=== PATIENT | female | born 1955 | race Caucasian/White ===

== ENCOUNTER 2016-08-22 12:32 | Emergency (ER) | payer OTHER ==
[~2016-08-22] VITALS: Ht 165.1 cm; Wt 81.7 kg
[~2016-08-22 12:32] MED LIST: ALEVE220 MG PO; ALPRAZOLAM 0.0.25 MG PO; AMITRIPTYLINE H10 M3 PO; ASPIRIN81 M2 PO; ATENOLOL 50MG T50 M1 PO; AUGMENTIN 875875 MG PO; FLEXERIL PO; HYDROCODON-ACE1 EAC7 PO; IBUPROFEN 400400 M2 PO; LYRICA 75 MG CA75 MG PO; MELOXICAM7.5 MG; MOBIC15 MG PO; NORCO 5-325 TA1 EACH PO; ONDANSETRON HCL4 M2 PO; PREDNISONE 5 MG5 M1 PO; PREDNISONE50 MG PO; PRILOSEC40 MG PO; SUMATRIPTAN SUC50 MG PO; TOPAMAX 25 MG T25 M1 PO; TRAMADOL 50 MG50 MG PO; TRAZODONE 150150 M1 PO; TRAZODONE HCL50 MG PO; VALTREX1000 MG; VIVELLE-DOT1 EAC1 TD; VIVELLE-DOT1 EAC1 TOP; VIVELLE-DOT1 EAC1 TRANSDERM; VIVELLE1 EAC1 TRANSDERM; XANAX 0.25 MG0.25 MG PO; ZANAFLEX4 MG PO
[2016-08-22 13:21] LABS: ABSOLUTE NEUTROPHILS 4.3 thou/uL (1.4-8.2); BASOPHILS 0.6 % (0.0-2.0); EOSINOPHILS 2.1 % (0.0-3.0); HEMATOCRIT 42.6 % (37.0-47.0); HEMOGLOBIN 14.6 gm/dL (12.0-15.0); LYMPHOCYTES 39.6 % (24.0-44.0); MCH 31.4 pg (26.0-34.0); MCHC 34.2 g/dL (28.0-37.0); MCV 91.8 fL (80.0-100.0); PLATELET COUNT 202 thou/uL (150-400); POLYS 52.7 % (36.0-66.0); RBC 4.65 mil/uL (4.20-5.00); RDW 12.6 % (10.5-14.5); WBC 8.1 thou/uL (4.0-11.0)
[2016-08-22 13:27] LABS: MANUAL DIFF NO
[2016-08-22 13:31] LABS: CALCIUM 9.1 mg/dL (8.5-10.1); POTASSIUM 4.3 mmol/L (3.5-5.1)
[2016-08-22] MEDS ORDERED: PREDNISONE 10 M10 MG PO (14:21)
[2016-08-22] MEDS ORDERED: NORFLEX100 MG PO (14:21)
[2016-08-22] MEDS ORDERED: HYDROCODONE-AP1 EAC6 PO (14:21)
[2016-08-22 14:34] LABS: ALBUMIN 3.9 g/dL (3.4-5.0); ALKALINE PHOSPHATASE 118 U/L (46-116); DIRECT BILIRUBIN < 0.1 mg/dL (<0.1-0.3); SGOT 36 U/L (15-37); SGPT 80 U/L (30-65); TOTAL BILIRUBIN 0.3 mg/dL (<0.1-1.0); TOTAL PROTEIN 7.5 g/dL (6.4-8.2)
== END 2016-08-22 14:51 | disposition home or self-care (01) ==
LOC: ER 12:32
PROVIDERS: Physician Assistant
DX: M54.12 Radiculopathy, cervical region (principal); R79.89 Other specified abnormal findings of blood chemistry; Z90.89 Acquired absence of other organs; Z90.710 Acquired absence of both cervix and uterus; Z88.1 Allergy status to other antibiotic agents; Z88.5 Allergy status to narcotic agent; Z88.8 Allergy status to other drugs, medicaments and biological substances; Z87.891 Personal history of nicotine dependence

== ENCOUNTER → 2016-11-18 | Outpatient (CLI) | payer OTHER ==
[~2016-11-18] MED LIST changes: +HYDROCODONE-AP1 EAC6 PO; +NORFLEX100 MG PO; +PREDNISONE 10 M10 MG PO
== END ==
LOC: CAT 15:00
DX: Z13.6 Encounter for screening for cardiovascular disorders (principal)

== ENCOUNTER → 2018-04-13 | Outpatient (CLI) | payer OTHER ==
[~2018-04-13] VITALS: Ht 165.1 cm; Wt 71.9 kg
[~2018-04-13] MED LIST changes: +ACYCLOVIR 400400 MG PO; +CYMBALTA60 MG PO; +NEURONTIN 300300 M1 PO; +OMEPRAZOLE 20 M20 M1 PO; +PRAVACHOL40 MG PO; +VERAPAMIL ER180 MG PO; +XANAX 0.5 MG0.5 MG PO
--- NOTE | ~2018-04-13 | HPC ---
[facility] [place] [address] PAIN MANAGEMENT CONSULTATION Name: RACIEL THOMSON Room #: REG ADIA MKailynR.#: [id number] Admission: 04/13/18 Attend Phys: Aniceto Hinds MD Discharge: Date of : 57 Report #: [id number] THIS REPORT FOR: //name// CC: RUSS Hinds DATE OF SERVICE: 04/13/2018 CHIEF COMPLAINT: Pain in the area of the right scapula with localized tenderness. This pain then radiates into the right arm and follows radial nerve distribution into the hand, also following C6. I am one of many physicians to see the patient who presents as a bit of an enigma. By description, you would describe her pain as almost classically radicular following the C6 distribution in the right arm. It begins in her neck, radiates through her scapula and down her arm posterior and into the thumb and index finger. This is associated also with some weakness and numbness and tingling. She has seen Dr. Rubina Corley, who felt that this was radicular and gave her 2 epidural injections, neither of which provided relief. She saw a physician at [facility] who performed an ulnar transposition. Pain tends to radiate for her in the distribution of the thumb and index finger, which would be more radial. This ulnar transposition surgery did not provide relief nor would it be expected to affect the thumb and index finger in my opinion. She saw Dr. Jerry Sanchez, who provided some trigger point injections. Temporary relief is noted, but the pain returned fairly quickly. She has been using Lidoderm patches with some slight benefit. She has had chiropractic treatments, which also provide limited improvement and duration is short. MEDICATIONS: Acyclovir, verapamil, omeprazole, Cymbalta 60 mg b.i.d., gabapentin 300 mg q.i.d. and at bedtime, trazodone 50 mg at bedtime, tizanidine 4 mg as needed, hydrocodone 5/325 p.r.n., pravastatin 1 mg b.i.d. ALLERGIES: CEPHALEXIN, CODEINE. PAST MEDICAL HISTORY: Significant for colitis and some stomach problems. She has had carpal tunnel surgery, right and left and the ulnar nerve relocation in 08/2015. 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 She smokes a pack of cigarettes a day and has done so throughout her life, although she just recently restarted 3 months ago. She drinks alcohol seldom. PHYSICAL EXAMINATION: Pleasant female, bit frustrated by lack of ability to get [facility] [address] [place] [address] PAIN MANAGEMENT CONSULTATION Name: RACIEL THOMSON Room #: REG ADIA Hernandez#: [id number] Admission: 04/13/18 Attend Phys: Aniceto Hinds MD Discharge: Date of : 57 Report #: [id number] rid of this chronic pain. Blood pressure is 132/71, heart rate 96, respirations 14, O2 sat 98. Her BMI is 26.4. Examination of the neck reveals good range of motion. Examination of the upper extremities and shoulders reveals good range of motion in the shoulders, elbows, wrists and hands. Good mba intern strength is noted. No weakness in biceps or triceps function. Straight leg raising above the head and forward reveals no asymmetry or movement in the scapula. Examination of the skin over the scapula reveals no rash or swelling, no redness. Palpating exam reveals tenderness along the upper border of the scapula and also extending along the medial border and below the scapula. She raised her arms above her head. She has pain in the areas that has been overlying by the scapular border. Deep tendon reflexes in the upper extremities are 2+ biceps and triceps, brachioradialis. Sensation is intact. Sensation in the lower extremities is normal. Deep tendon reflexes are normal in the lower extremities as well. All x-rays reviewed. There is no evidence of cervical pathology to be consistent with her right-sided pain. She does have some neural foraminal narrowing on the left her contralateral side. Dr. Jerry Sanchez has performed an EMG, which shows no evidence of peripheral neuropathy or central neuropathy or radiculopathy. IMPRESSION: Chronic subscapular pain with radiation into the right arm. Over and over again throughout the exam and during our discussion, she kept referring to the pain in her scapular, the pain overlying her scapula, the pain medial to her scapula. Although she has pain that radiates in a nerve distribution into the arm, it seems to me that her scapula is her greatest complaint. There are no common syndromes certainly associated with subscapular pain; however, there are some patients who have responded to treatments, particularly injections between the scapula and the chest wall. I was going to inject her today, but thought it would be interesting to perform a diagnostic x-ray study to see if there was anything that we could identify in the subscapular region before we started injecting below it. I spoke with Dr. Chidi Aleman in the Department of Radiology at [facility] and he suggested a CT scan with contrast focusing on the area of concern. We will see if anything shows up. I then scheduled her back in the pain clinic for a subscapular trigger point injection. We will perform this injection after we receive the studies unless there is something else that we should review. I also considered the possibility of bone scan to see if it provided any abnormal findings in the area of pain generation. [address] [place] [address] PAIN MANAGEMENT CONSULTATION Name: RACIEL THOMSON Room #: REG Nuno Moncada.#: [id number] Admission: 04/13/18 Attend Phys: Aniceto Hinds MD Discharge: Date of : 57 Report #: [id number] Followup visit is planned in 1 week for subscapular injection. By: [id number] Aniceto Hinds MD /nt
[2018-04-13 09:06] VITALS: BP 132/71
== END ==
LOC: PAIN 08:41
DX: M25.511 Pain in right shoulder (principal); G89.29 Other chronic pain

== ENCOUNTER → 2018-04-24 | Outpatient (CLI) | payer OTHER ==
[2018-04-24 12:27] LABS: CREATININE 0.8 mg/dL (0.6-1.0)
== END ==
LOC: PAIN 10:15 → CAT 11:37
PROVIDERS: Anesthesiology Pain Medicine
DX: M19.011 Primary osteoarthritis, right shoulder (principal); I71.2 Thoracic aortic aneurysm, without rupture; M41.84 Other forms of scoliosis, thoracic region; M47.814 Spondylosis without myelopathy or radiculopathy, thoracic region

== ENCOUNTER → 2018-05-02 | Outpatient (CLI) | payer OTHER ==
[~2018-05-02] VITALS: Ht 165.1 cm; Wt 73.8 kg
--- NOTE | ~2018-05-02 | HPC ---
[facility] [place] [address] PAIN MANAGEMENT CONSULTATION Name: RACIEL THOMSON Room #: REG ADIA GoldKailynJim.#: [id number] Admission: 05/02/18 Attend Phys: Aniceto Hinds MD Discharge: Date of : 57 Report #: [id number] THIS REPORT FOR: //name// CC: Elias Hinds DATE OF SERVICE: 05/02/2018 SUBJECTIVE: The patient returns to pain clinic today for ongoing pain that has remained a bit of an enigma. She has seen multiple practitioners and received variety of injections, treatments, massage and manipulations. She continues to complain of chronic pain described in her initial visit that begins in the right neck, radiates above the scapula through her shoulder and at times down her arm. She also has pain along the medial border and lateral border of the scapula. She has multiple myofascial trigger points located in this region. I now have records from her previous treatments including Dr. Rubina Corley' epidural steroid injections performed at the level of C7-T1. Ms. Lindsey's trigger point injections using small volumes in the suprascapular region and I have reviewed the CT scan, which shows that she does have some degenerative changes about the glenoid. This could be a portion of her pain. The most notable feature, however, the discrete myofascial trigger points located throughout a variety of muscles in the neck, shoulder and along the scapula. MEDICATIONS: Reviewed and reconciled in electronic medical record. She is out of hydrocodone, which she finds helpful in reducing her pain to a tolerable level. She does not over utilize it, taking no more than one to two tablets a day. She has never been on an opioid agreement and given her multiple attempts to treat this pain with injections and other interventional failures, I have agreed to provide her with medication under terms of an opioid agreement with the intent to limit her exposures to other treatment modalities and to try and discontinue doctor shopping. I have reviewed the risks and benefits of all opioids. We talked about addiction versus the use of medication cautiously and the treatment of chronic intractable pain as outlined on our website. We talked about the opioid crisis in [facility] and the importance of safeguarding all medications. We identified goals as reduction of pain, not elimination and improvement in daily function as a result of this. Decreasing health care contacts also has been one of the goals of treating patients successfully with medication. We will start her at hydrocodone 5 mg twice a day for a total of 10 MME considered very low dose under the CDC guidelines. [address] [address] PAIN MANAGEMENT CONSULTATION Name: RACIEL THOMSON Room #: REG Nuno Hernandez#: [id number] Admission: 05/02/18 Attend Phys: Aniceto Hinds MD Discharge: Date of : 57 Report #: [id number] PHYSICAL EXAMINATION: GENERAL: Today, she is mildly depressed. She speaks with a slight slurring of her speech, which was present at her last visit. I do not believe that this is a drug related effect, but of a buccal drug screen will be performed today. MUSCULOSKELETAL: Examination of the neck reveals decreased range of motion in lateral tilt, rotation, flexion and extension. She has tenderness along the muscles of the neck including the levator scapulae, the splenius capitis and additional tenderness along the deeper muscles between between the medial border of the scapula and the spine including the rhomboid major and minor muscles as well as the serratus. The trapezius is tender as well more superficially. Along the spine and the scapula, she has tenderness of the supraspinatus as well as pain that extends below the scapula likely attachments of the rhomboid muscle group. Finally, she has tenderness more laterally along the attachments of the shoulder including the supraspinatus, infraspinatus and the teres. IMPRESSION: Chronic neck and shoulder pain. Multiple myofascial tender points involving 10 separate muscle groups identified in physical exam. PROCEDURE: Multiple trigger points performed with x-ray to confirm needle positions along the border of the scapula. She was taken to fluoroscopic suite and she was placed prone. Skin was prepped widely with ChloraPrep. It began in the neck, first injecting the splenius capitis, levator scapulae with 2 mL of 0.25% bupivacaine mixed with 1 mg per mL of triamcinolone. I then continued in a counterclockwise fashion injecting the trapezius superficially, the rhomboid major and minor muscle and the serratus. I then turned my attention superiorly injecting the supraspinatus, infraspinatus and the teres muscle. Each injection performed with 2 mL of 0.25% bupivacaine with 1 mg of triamcinolone per mL. Gentle massage was provided into the area following the injection. I did use the x-ray on several occasions just to know position of the needle in relationship to the scapula as well as to the shoulder joint itself as we moved more laterally. Degenerative changes were noted. She was given a prescription for hydrocodone 5/325, #60 tablets and a followup visit scheduled for 2 months. Release prescriptions for 1 month will be provided. She was given instructions on how to use the medications carefully and we discussed side effects and risks. <ELECTRONICALLY SIGNED> By: Aniceto Hinds MD 05/04/18 1538 [id number] Aniceto Hinds MD /parul
[2018-05-02 11:27] VITALS: BP 120/85
== END | disposition home or self-care (01) ==
LOC: PAIN 08:34
DX: M79.18 Myalgia, other site (principal); G89.29 Other chronic pain; M54.2 Cervicalgia; M25.511 Pain in right shoulder; Z98.890 Other specified postprocedural states; F17.210 Nicotine dependence, cigarettes, uncomplicated; Z88.8 Allergy status to other drugs, medicaments and biological substances; Z79.899 Other long term (current) drug therapy; Z79.891 Long term (current) use of opiate analgesic

== ENCOUNTER → 2018-06-12 | Outpatient (CLI) | payer OTHER ==
[~2018-06-12] VITALS: Ht 165.1 cm; Wt 74.4 kg
--- NOTE | ~2018-06-12 | HPC ---
[facility] [place] [address] PAIN MANAGEMENT CONSULTATION Name: RACIEL THOMSON Room #: REG Nuno M.R.#: [id number] Admission: 06/12/18 Attend Phys: Aniceto Hinds MD Discharge: Date of : 57 Report #: [id number] THIS REPORT FOR: //name// CC: Elias Lindsey, MICHELLE Hinds DATE OF SERVICE: 06/12/2018 The patient returns to Pain Clinic today and she reported that she had a very favorable response to trigger point injections performed in and around the scapula and subscapular region. I injected the trapezius, rhomboid and the serratus. I also injected the supraspinatus, infraspinatus and teres muscle. Multiple injections provided. The response was nearly immediate and sustained. She has used far less pain medication over the course of the last 2 months. I have agreed to provide her medications for her under terms of our written opioid agreement. Her last prescription for Wyarno was provided on 05/02/2018 for 60 tablets. She will fill that in May and still has some medication remaining. I reviewed her buccal drug screen. It shows cotinine, a metabolite of nicotine. We discussed smoking cessation. It also shows gabapentin. No additional medications or drugs of abuse were identified. There was a lengthy discussion today about opioids, the opioid agreement, the use of opioids in treatment for chronic pain and the recently passed medical marijuana resolution in [place]. We are not currently recommending a product as we have no medications. We did discuss the medicinal qualities of CBD and THC in varying percentages. We are quick to point out that all marijuana remains illegal on a federal basis and physicians are not allowed to prescribe it as other medications. PHYSICAL EXAMINATION: She is pleasant, alert and oriented. Her blood pressure is 110/64, heart rate 79. BMI 27. Trigger points in the back much reduced and she scores her pain today as a 2. Range of motion of the upper extremities is symmetrical. No restrictions on the right as before. No focal weakness is noted. IMPRESSION: 1. Chronic neck and shoulder pain. Myofascial pain syndrome. 2. Management of high risk medications. [facility] [address] [place] [address] PAIN MANAGEMENT CONSULTATION Name: RACIEL THOMSON Room #: REG [facility]#: [id number] Admission: 06/12/18 Attend Phys: Aniceto Hinds MD Discharge: Date of : 57 Report #: [id number] PLAN: 1. Trigger points will be repeated in the future as necessary. 2. Management of opioid medications under terms of written opioid agreement was provided for her with hydrocodone 5/325, no more than 2 tablets a day, which equates to an MME of 10. Followup visit scheduled in 2 months. She will call if she needs further injection therapy. By: [id number] Aniceto Hinds MD /nt
[2018-06-12 10:03] VITALS: BP 110/64
--- NOTE | 2018-06-12 10:13 | NUR ---
Pain Clinic Assessment: 1. History of Osteoarthritis: Not Applicable History of Rheumatoid Arthritis: Not Applicable 2. Height: 5 ft. 5 in. 165.1 cm. Weight: 164.0 lb. oz. 74.390 kg. Patient's BMI: 27.3 3. Vital Signs: BP: 110/64 Pulse: 79 Resp: 14 Temp: 02 Sat: 97 ECG Mon: 4. Pain Intensity: 2 5. Fall Risk: Dizziness: N Needs help standing or walking: N Fallen in the last 3 months: N Fall risk comments: 6. Patient on Blood Thinner: None 7. History of Hypertension: N 8. Opioid Therapy greater than 6 weeks: N Opiate Contract Signed: 9. Risk Assessment Tool Provided: LOW RISK 0/3 10. Functional Assessment Tool: 11. Recreational Drug Use: Current within past 3 mos Drug Type: Tobacco Use: Current Every Day Smoker Tobacco Type: Amount or Packs/day: How Many Years: Alcohol Use: No Frequency: Quant:
== END ==
LOC: PAIN 07:29
DX: M54.2 Cervicalgia (principal); M25.512 Pain in left shoulder; M25.511 Pain in right shoulder; M79.18 Myalgia, other site; Z79.899 Other long term (current) drug therapy

== ENCOUNTER → 2018-09-18 | Outpatient (CLI) | payer OTHER ==
[~2018-09-18] VITALS: Ht 165.1 cm; Wt 74.3 kg
[~2018-09-18] MED LIST changes: +ALLERGY10 M2 PO; +BENTYL 20 MG TA20 M1 PO; +LOMOTIL TABLET1 EACH PO; +SUDAFED 12-HOU120 MG PO
[2018-09-18 13:42] VITALS: BP 124/77
--- NOTE | 2018-09-18 13:58 | NUR ---
Pain Clinic Assessment: 1. History of Osteoarthritis: Not Applicable History of Rheumatoid Arthritis: Not Applicable 2. Height: 5 ft. 5 in. 165.1 cm. Weight: 163.8 lb. oz. 74.299 kg. Patient's BMI: 27.3 3. Vital Signs: BP: 124/77 Pulse: 101 Resp: 20 Temp: 02 Sat: 95 ECG Mon: 4. Pain Intensity: 4 5. Fall Risk: Dizziness: N Needs help standing or walking: N Fallen in the last 3 months: N Fall risk comments: 6. Patient on Blood Thinner: None 7. History of Hypertension: N 8. Opioid Therapy greater than 6 weeks: N Opiate Contract Signed: 9. Risk Assessment Tool Provided: LOW RISK 0/3 10. Functional Assessment Tool: 11. Recreational Drug Use: Current within past 3 mos Drug Type: marajuana Tobacco Use: Current Every Day Smoker Tobacco Type: Cigarettes Amount or Packs/day: 1 ppd How Many Years: 12 Alcohol Use: No Frequency: Quant:
--- NOTE | 2018-09-19 07:35 | HPC ---
[facility] [address] [place] [address] PAIN MANAGEMENT CONSULTATION Name: RACIEL THOMSON Room #: REG ADIA Moncada.#: [id number] Admission: 09/18/18 ������������������ Attend Phys: Felicia Montana Discharge: ������������������ Date of : 57 Report #: [id number] THIS REPORT FOR: //name// CC: Felicia Montana [facility] DATE OF SERVICE: 09/18/2018 CHIEF COMPLAINT: Right trapezius and right arm pain. HISTORY OF PRESENT ILLNESS: The patient returns to the pain clinic today for refill of her medication management. She tells me that the injection that Dr. Aniceto Hinds had given her in April was very helpful in relieving some of her pain involving her scapula and subscapular region. She tells me she does have some pain today in her thumb and index fingers of her right hand. She tells me her pain score is 4/10 today. It is mostly an achy feeling or desensitized feeling in her thumb and finger. She tells me she feels like she will need to have another injection in the near future so that she is able to function better throughout the summer. She is undergoing some issues regarding her gallbladder and is scheduled to have her gallbladder removed on Tuesday. 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 She has been having significant diarrhea and has been tested several times. The patient does not have C. diff and unsure what is causing the diarrhea. She did have a PIPIDA scan for her gallbladder and it was determined to take out her gallbladder at this time to see if some of these symptoms are relieving her diarrhea and abdominal pain that she is having. The patient tells me that if she gets any pain medicine from her surgeon from her surgery on Tuesday that she will call and let us know. The patient also tells me she has a compressed iliac artery that Dr. Flores has been looking at doing a procedure on, but he told her to get her gallbladder taken care of first and they will address that later. Today, she would just like a refill of her medications from us. ALLERGIES: CODEINE, KEFLEX, MEROPENEM. CURRENT MEDICATIONS: Lomotil, Claritin, Bentyl 20 mg b.i.d., Sudafed as needed, hydrocodone 5/325 b.i.d., omeprazole, trazodone, Cymbalta, verapamil, acyclovir, tizanidine, Xanax and pravastatin. PQRS: 1. She denies any history of rheumatoid or osteoarthritis. 2. Height is 5 feet 5 inches, weight is 163, BMI is 27.3. 3. Vital signs: Blood pressure 124/77, pulse is 101, respirations 20, oxygen sat is 95%. 4. Pain score is 4/10. [address] [address] PAIN MANAGEMENT CONSULTATION Name: RACIEL THOMSON Room #: REG [facility] David#: [id number] Admission: 09/18/18 ������������������ Attend Phys: Felicia Montana Discharge: ������������������ Date of : 57 Report #: [id number] 5. Fall risk. Denies dizziness. Does not help walking or standing, has not fallen in the last 3 months. 6. The patient is not on any blood thinners or any antihypertension medicines. 7. Opiate therapy is greater than 6 weeks; therefore, we will consider an opioid signed contract for her. 8. Risk assessment tool is low. Functional assessment is 29/70. 9. Recreational drug use within the past 3 months. She is a current tobacco smoker of a pack a day and does not drink alcohol. We did check the prescription monitoring system. The patient is filling appropriately with her hydrocodone taking 1-2 tablets a day. We will need to check a drug screen on this patient in her next visit. PHYSICAL EXAMINATION: GENERAL: This is a very pleasant female who is alert and orientated and appears her stated age. HEENT: Normocephalic, atraumatic. Extraocular eye muscles are intact. Mucous membranes are moist. NECK: Without JVD or adenopathy. MUSCULOSKELETAL: Does complain of some pain in her trapezius and her scapular region, also complains of some numbness and tingling in her thumb and index finger. Upper extremity strength judged to be 5/5 bilaterally. ABDOMEN: The patient does complain of some ongoing diarrhea and abdominal pain, being treated for gallbladder disease. IMPRESSION: 1. Chronic neck and shoulder pain, myofascial pain syndrome. 2. Management of high risk medications. We reviewed the fact that opiate medications are being used to provide analgesia adequate to support activities of daily living, not attempting to achieve a specific pain score on the 0-10 Visual Analog Scale. The current opiate medications are providing sufficient analgesia to allow the patient to participate in activities of daily living. The patient is not exhibiting any aberrant behavior suggestive of drug diversion. The patient is not having any adverse reactions to medications. The patient is not suffering from daytime somnolence or mental acuity changes. The patient is managing opiate-induced constipation with appropriate txkq-hlg-lkzpzum agents and dietary considerations. The patient was counseled on concern for caution with operating a motor vehicle while using opiate medications. A physical exam was performed and the patient's functional status was evaluated. All patients with back pain were advised against the bed rest greater than 4 days and were advised to return to normal activities. Pain score assessment was noted and the treatment plan was reviewed with the patient. All current medications, both prescribed and OTC were reviewed and reconciled on the electronic medical record. Tobacco screening was accomplished and smoking [facility] [address] [place] [address] PAIN MANAGEMENT CONSULTATION Name: RACIEL THOMSON Room #: REG [facility] M.Jim.#: [id number] Admission: 09/18/18 ������������������ Attend Phys: Felicia Montana Discharge: ������������������ Date of : 57 Report #: [id number] cessation was advised when indicated. BMI was noted and diet/exercise modification was recommended for all patients following outside normal parameters. I reviewed with the patient today their responsibilities to safeguard prescription medications, reviewed their responsibility to utilize medications only as prescribed by the physician. They are to seek and receive pain medications only from 1 physician group ( [facility]). They are to use 1 pharmacy and keep the clinic informed if they change pharmacies. Their responsibilities include making followup visits in a timely fashion and to avoid abrupt discontinuation of medication usage. Their responsibilities further include bringing their medications (bottles from the pharmacy with residual pills) to the visit for possible confirmation of pill counts and the patient understands it is their responsibility to submit to random drug screens to ensure both that the medications prescribed are present, and that no other controlled substances are present. All prescriptions provided today were generated electronically. PLAN: 1. We discussed treatment options with the patient today. The patient would like a refill of her hydrocodone. She takes 1 tablet every day and occasionally We will refill this medication today for #60 for today and 4-week. 2.I did remind the patient that all marijuana products currently are illegal on the federal basis and physicians are not allowed to prescribe that as a medication and that currently in [place], it is not even legal for medical purposes and we will need to check a drug screen on this patient in the near future. The patient verbalizes understanding. She knows that CBD is okay to take, but not the THC, so we will remind the patient of these and if she continues to use any products that are illegal, we will not be able to write for her medication on a daily basis. 3. The patient will call us and inform us if she does get a prescription for any medications following her gallbladder surgery that is scheduled this week. 4. The patient will follow up in 2 months' time. The patient's care given today under the collaboration of Dr. Aniceto Hinds. ��������������������������������������������� <ELECTRONICALLY SIGNED> ���������������������������������������� By: Felicia Montana ��������������������������������������������� 09/19/18 0735 [id number] Felicia Montana /parul
== END ==
LOC: PAIN 07:08
DX: M54.2 Cervicalgia (principal); M25.511 Pain in right shoulder; M79.18 Myalgia, other site; G89.29 Other chronic pain; Z79.891 Long term (current) use of opiate analgesic; Z88.5 Allergy status to narcotic agent; Z79.899 Other long term (current) drug therapy

== ENCOUNTER → 2018-11-23 | Outpatient (CLI) | payer OTHER ==
[~2018-11-23] VITALS: Ht 165.1 cm; Wt 75.2 kg
[~2018-11-23] MED LIST changes: +ZYRTEC10 M5 PO
[2018-11-23 12:51] VITALS: BP 128/79
--- NOTE | 2018-11-23 13:07 | NUR ---
Pain Clinic Assessment: 1. History of Osteoarthritis: Not Applicable History of Rheumatoid Arthritis: Not Applicable 2. Height: 5 ft. 5 in. 165.1 cm. Weight: 165.8 lb. oz. 75.206 kg. Patient's BMI: 27.6 3. Vital Signs: BP: 128/79 Pulse: 75 Resp: 16 Temp: 02 Sat: 97 ECG Mon: 4. Pain Intensity: 6 5. Fall Risk: Dizziness: N Needs help standing or walking: N Fallen in the last 3 months: Y Fall risk comments: 6. Patient on Blood Thinner: None 7. History of Hypertension: N 8. Opioid Therapy greater than 6 weeks: N Opiate Contract Signed: 9. Risk Assessment Tool Provided: LOW RISK 0/3 10. Functional Assessment Tool: 11. Recreational Drug Use: Current within past 3 mos Drug Type: MARAJAUNA Tobacco Use: Current Every Day Smoker Tobacco Type: Cigarettes Amount or Packs/day: 1 PACK How Many Years: Alcohol Use: Yes Frequency: Special Occasions Quant:
--- NOTE | 2018-12-05 17:25 | HPC ---
[facility] [place] [address] PAIN MANAGEMENT CONSULTATION Name: RACIEL THOMSON Room #: REG [facility] M.R.#: [id number] Admission: 11/23/18 ������������������ Attend Phys: Aniceto Hinds MD Discharge: ������������������ Date of : 57 Report #: [id number] THIS REPORT FOR: //name// CC: Zoraida Hinds DATE OF SERVICE: 11/23/2018 Followup visit for right shoulder and upper arm pain, myofascial pain syndrome. The patient returns to pain clinic today in followup for repeat trigger point injections. I performed extensive trigger points throughout the upper back on the right and shoulder. Based upon her physical exam, it appeared that most of her pain was related to myofascial tender points, which were fairly significant and widespread. There was no evidence of cervical pathology consistent with her right-sided pain and EMG was performed, which also was negative. On 05/04/2018, I performed multiple trigger points with x-ray to confirm needle positions along and underneath the border of the scapula and also to identify areas involving the supraspinatus and infraspinatus muscles and the teres muscle group. We reviewed those injections and her response. She would like to repeat them today. She said she was able to withdraw from her pain medication following the injections for a number of months and then when the pain began returning, she returned to hydrocodone. Record will reflect that she has remained on hydrocodone 5/325, but at relatively low doses, taking no more than 5-10 mg per day when the pain is severe. She has tried other medications including antidepressants including Cymbalta, muscle relaxants, tizanidine, anti-inflammatory drugs. She has also been on alprazolam in the past. PHYSICAL EXAMINATION: GENERAL: She is a pleasant 63-year-old. VITAL SIGNS: Her blood pressure 128/79, heart rate 75, respirations 16. NECK: Examination of the neck reveals good range of motion. MUSCULOSKELETAL: Examination of the shoulder girdle reveals tenderness along the neck including the splenius capitis, cervicalis and trapezius. Tender points were also identified along the suprascapular muscle, infraspinatus, the teres muscle group as well as the rhomboids along the medial border of the scapula all the way down to the angle of the scapula. There is no pain radiating into the shoulder or arms. IMPRESSION: 1. Chronic neck pain and shoulder pain with myofascial pain syndrome. 2. Management of high-risk medications. [facility] [address] [place] [address] PAIN MANAGEMENT CONSULTATION Name: RACIEL THOMSON [id number] Admission: 11/23/18 ������������������ Attend Phys: Aniceto Hinds MD Discharge: ������������������ Date of : 57 Report #: [id number] I reviewed her opioid medications and the important terms of our agreement where she safeguards her medications. She gets all her medications from one pharmacy. There are no other prescribers. We have her on an opioid agreement. Urine drug screens have been performed and no medication was present on her test in April. She had been out of medication. Repeat drug screens will be performed at my discretion going forward. PROCEDURE: Trigger point injections. She was taken to fluoroscopic suite. She was placed prone, skin was prepped with ChloraPrep. We identified the border of the scapula using x-ray. From there, injections were performed by palpation and identification of trigger points. I began in the neck and inject first trigger points of the splenius capitis and cervicalis and trapezius. This was then followed by more inferior injections along the rhomboid muscle groups in the medial border of the scapula. I injected subscapular as well and an area just medial to the scapula border. Final injections were performed along the teres and the supraspinatus and infraspinatus muscle groups. I injected 2 mL at each level containing 0.25% bupivacaine with 1 mg of triamcinolone. A total of 20 mL were utilized there for about 20 mg of triamcinolone in this group of about 10 trigger point injections. She tolerated the procedure well. She is observed for about 30-45 minutes and given her prescriptions at discharge. Pain score is markedly reduced as before. Follow up as needed. ��������������������������������������������� <ELECTRONICALLY SIGNED> ���������������������������������������� By: Aniceto Hinds MD ��������������������������������������������� 12/05/18 1725 [id number] Aniceto Hinds MD /nt
== END | disposition home or self-care (01) ==
LOC: PAIN 09-11 06:48
DX: M79.18 Myalgia, other site (principal); G89.29 Other chronic pain; F17.210 Nicotine dependence, cigarettes, uncomplicated; Z88.8 Allergy status to other drugs, medicaments and biological substances; Z79.899 Other long term (current) drug therapy; M54.12 Radiculopathy, cervical region

== ENCOUNTER → 2019-01-24 | Outpatient (CLI) | payer OTHER ==
[~2019-01-24] VITALS: Ht 165.1 cm; Wt 75.8 kg
[~2019-01-24] MED LIST changes: +MEDROLDOSEPACK PO; +SALONPAS GEL-P1 EAC1 TOP
--- NOTE | ~2019-01-24 | HPC ---
[facility] [address] [place] [address] PAIN MANAGEMENT CONSULTATION Name: RACIEL THOMSON Room #: REG Nuno Moncada.#: [id number] Admission: 01/24/19 Attend Phys: Felicia Montana Discharge: Date of : 57 Report #: [id number] THIS REPORT FOR: //name// CC: Felicia Montana [facility] DATE OF SERVICE: 01/24/2019 CHIEF COMPLAINT: Right flank pain. HISTORY OF PRESENT ILLNESS: This is a very pleasant 63-year-old female who returns to the pain clinic today for a refill of medications, but also to discuss a new pain that she is having in her right flank area that radiates into her right hip. She tells me that she did go to the [facility] Emergency Room, had a CAT scan and several other tests that showed she did not have any kidney stones, though it did show some slight amount of blood in her urine. She was given several medications there as well as steroids and muscle relaxants to start at home. She is currently on a Medrol Dosepak and Norflex. She feels that they are somewhat helpful, but is here to discuss this new pain that is located in her right lower back that radiates into her hip. It does not go into her groin or leg currently. She does rate her pain score as 6-7 today, an aching, sharp pain is how she describes it. Medications have been somewhat helpful so far. The patient tells me she has a history of lipomas and she is unsure if that was what is causing her pain or she should see her primary care doctor that she needed a medication refill. So she started with our physicians today. ALLERGIES: CODEINE, KEFLEX, MEROPENEM. CURRENT LIST OF MEDICATIONS: Medrol Dosepak, Salonpas, Norflex 100 mg b.i.d., hydrocodone 5/325 b.i.d., Zyrtec, Bentyl, omeprazole, trazodone, Cymbalta, verapamil, acyclovir, tizanidine, alprazolam, and Pravachol. PQRS: 1. She has not been treated for rheumatoid arthritis or osteoarthritis. 2. Height is 5 feet 5 inches, weight is 167, BMI is 27. 3. Vital signs 126/74, pulse is 76, respirations 14, oxygen sat is 98. 4. Pain score is 6-7. 5. Denies dizziness, does not need help walking or standing, has not fallen in the last 3 months. She is not on any blood thinners and does not take medicine for hypertension. 6. Her opioid therapy is greater than 6 weeks. There is an opioid signed contract on her chart. Risk assessment is low. Functional assessment is 29/70. 7. Recreational drug use in the past. Currently, she is a smoker of a half a pack to a pack of cigarettes a day, is trying to decrease this using Nicorette [address] [address] PAIN MANAGEMENT CONSULTATION Name: RACIEL THOMSON Room #: REG ADIA Hernandez#: [id number] Admission: 01/24/19 Attend Phys: Felicia Montana Discharge: Date of : 57 Report #: [id number] gum. She occasionally drinks alcohol as well. According to the prescription monitoring system, the patient is filling her medications appropriately and is due for those today. She did return a prescription that she did not fill from the Emergency Room at [place] that we did destroy. PHYSICAL EXAMINATION: GENERAL: This is a pleasant 63-year-old female who appears her stated age, placing her current pain score to 6-7. HEENT: Normocephalic, atraumatic. Extraocular eye muscles are intact. Complains of slight discomfort in her right neck, localized tenderness. MUSCULOSKELETAL: Complains of right flank area pain that radiates into her right hip starting at the L1-L2 dermatomal distribution that radiates again into the right hip. Does not go past into the groin or into her thigh at this present time. This is tenderness feeling. There are lipomas palpable as well. IMPRESSION: 1. Right flank pain, possible lumbar radiculopathy. 2. Chronic neck pain and shoulder pain with myofascial pain syndrome. 3. History of multiple lipomas. 4. Management of high risk medications under written opioid agreement. 5. Habitual tobacco use. We reviewed the fact that opiate medications are being used to provide analgesia adequate to support activities of daily living, not attempting to achieve a specific pain score on the 0-10 Visual Analog Scale. The current opiate medications are providing sufficient analgesia to allow the patient to participate in activities of daily living. The patient is not exhibiting any aberrant behavior suggestive of drug diversion. The patient is not having any adverse reactions to medications. The patient is not suffering from daytime somnolence or mental acuity changes. The patient is managing opiate-induced constipation with appropriate ycsu-ttf-covzexo agents and dietary considerations. The patient was counseled on concern for caution with operating a motor vehicle while using opiate medications. A physical exam was performed and the patient's functional status was evaluated. All patients with back pain were advised against the bed rest greater than 4 days and were advised to return to normal activities. Pain score assessment was noted and the treatment plan was reviewed with the patient. All current medications, both prescribed and OTC were reviewed and reconciled on the electronic medical record. Tobacco screening was accomplished and smoking cessation was advised when indicated. BMI was noted and diet/exercise modification was recommended for all patients following outside normal parameters. [facility] [address] [place] [address] PAIN MANAGEMENT CONSULTATION Name: RACIEL THOMSON Room #: REG [facility] M.R.#: [id number] Admission: 01/24/19 Attend Phys: Felicia Montana Discharge: Date of : 57 Report #: [id number] I reviewed with the patient today their responsibilities to safeguard prescription medications, reviewed their responsibility to utilize medications only as prescribed by the physician. They are to seek and receive pain medications only from 1 physician group ( [facility]). They are to use 1 pharmacy and keep the clinic informed if they change pharmacies. Their responsibilities include making followup visits in a timely fashion and to avoid abrupt discontinuation of medication usage. Their responsibilities further include bringing their medications (bottles from the pharmacy with residual pills) to the visit for possible confirmation of pill counts and the patient understands it is their responsibility to submit to random drug screens to ensure both that the medications prescribed are present, and that no other controlled substances are present. All prescriptions provided today were generated electronically. PLAN: 1. We discussed treatment options with the patient today. First, the patient is going to follow up with her primary care doctor regarding the blood that was found in her urine during her recent ER visit. I explained to her that is out of our realm of care, but something that may need to be looked at. She was negative for infection and she was at the Emergency Room and has remained afebrile, but I encouraged her to follow up with her primary care doctor. 2. The patient is to continue her Medrol Dosepak and her muscle relaxants as needed. Cautioned her not to take the tizanidine and Norflex together, use one or the other. If her symptoms do not resolve, she is to make an appointment with Dr. Aniceto Hinds for a possible lumbar epidural injection or trigger point injection depending if the pain continues to radiate into her right hip or stays localized in her right low back, right flank area. 3. Scripts given for hydrocodone 5/325, #60 to release today and 4 weeks. 4. We did talk about smoking cessation and encouraged her to continue her Nicorette gum and to decrease her smoking as she is able. She had quit for 10 years prior to starting back. 5. Dr. Curtis Santillan did collaborate care today. By: [id number] Felicia Montana /parul
[2019-01-24 09:07] VITALS: BP 126/74
--- NOTE | 2019-01-24 09:15 | NUR ---
Pain Clinic Assessment: 1. History of Osteoarthritis: Not Applicable History of Rheumatoid Arthritis: Not Applicable 2. Height: 5 ft. 5 in. 165.1 cm. Weight: 167.0 lb. oz. 75.751 kg. Patient's BMI: 27.8 3. Vital Signs: BP: 126/74 Pulse: 76 Resp: 14 Temp: 02 Sat: 98 ECG Mon: 4. Pain Intensity: 6-7 5. Fall Risk: Dizziness: N Needs help standing or walking: N Fallen in the last 3 months: N Fall risk comments: 6. Patient on Blood Thinner: None 7. History of Hypertension: N 8. Opioid Therapy greater than 6 weeks: N Opiate Contract Signed: 9. Risk Assessment Tool Provided: LOW RISK 0/3 10. Functional Assessment Tool: 11. Recreational Drug Use: Current within past 3 mos Drug Type: WEED Tobacco Use: Current Every Day Smoker Tobacco Type: Cigarettes Amount or Packs/day: 1 How Many Years: Alcohol Use: Yes Frequency: Special Occasions Quant:
== END ==
LOC: PAIN 06:39
DX: R10.9 Unspecified abdominal pain (principal); M54.2 Cervicalgia; G89.29 Other chronic pain; M79.18 Myalgia, other site; M25.519 Pain in unspecified shoulder; Z79.891 Long term (current) use of opiate analgesic; Z72.0 Tobacco use

== ENCOUNTER → 2019-04-30 | Outpatient (CLI) | payer OTHER ==
[~2019-04-30] VITALS: Ht 165.1 cm; Wt 75.5 kg
[2019-04-30 13:54] VITALS: BP 130/80
--- NOTE | 2019-04-30 14:23 | NUR ---
Pain Clinic Assessment: 1. History of Osteoarthritis: RT KNEE SPINE History of Rheumatoid Arthritis: DENIES 2. Height: 5 ft. 5 in. 165.1 cm. Weight: 166.4 lb. oz. 75.479 kg. Patient's BMI: 27.7 3. Vital Signs: BP: 130/80 Pulse: 77 Resp: 16 Temp: 02 Sat: 97 ECG Mon: 4. Pain Intensity: 8 MAX 2 NOW 5. Fall Risk: Dizziness: N Needs help standing or walking: N Fallen in the last 3 months: N Fall risk comments: 6. Patient on Blood Thinner: None 7. History of Hypertension: N 8. Opioid Therapy greater than 6 weeks: N Opiate Contract Signed: 05/02/18 9. Risk Assessment Tool Provided: LOW RISK 0/3 10. Functional Assessment Tool: 11. Recreational Drug Use: Current within past 3 mos Drug Type: MJ 3-4 TIMES A WEEK Tobacco Use: Current Every Day Smoker Tobacco Type: Cigarettes Amount or Packs/day: 1 How Many Years: 2 Alcohol Use: Yes Frequency: Monthly Quant:
--- NOTE | 2019-05-01 09:37 | HPC ---
[facility] [address] [place] [address] PAIN MANAGEMENT CONSULTATION Name: RACIEL THOMSON Room #: REG ADIA Hernandez#: [id number] Admission: 04/30/19 Attend Phys: Felicia Montana Discharge: Date of : 57 Report #: [id number] THIS REPORT FOR: //name// CC: Felicia Montana [facility] DATE OF SERVICE: 04/30/2019 CHIEF COMPLAINT: Right flank pain. HISTORY OF PRESENT ILLNESS: This is a very pleasant 63-year-old female who returns to the Pain Clinic today for a refill of her medications that she helps treat her ongoing right flank pain that does radiate into her right hip. She recently had her pass away fairly unexpectedly. He was diagnosed with cancer of acute lymphocytic leukemia and as a reaction to a platelet transfusion. The patient tells me she has slowly been trying to deal with his passing. She has had increased pain as a result of this stressful time in her life and trying to do things at home that she not normally would take care of. The patient does report that she attempted to go hunting with her son, something she and her always participated in. She feels that she flared her right hip pain as a result of carrying her gun. It is a tenderness rating 2/10 presently on a pain score, but later in the day, she reports it may be an 8/10 in this area. It is an achy, sharp pain that she finds the medicine beneficial and helping control. The patient also reports that she was diagnosed with multiple sclerosis. It is inactive currently and she is not taking any medications for this disease process. They did find 2 lesions, per her report, at T6 and T10 and then several lesions in her brain. She is seeing Dr. Yang at and has her next appointment in June. ALLERGIES: CODEINE, KEFLEX, MEROPENEM. CURRENT LIST OF MEDICATIONS: Hydrocodone 5/325 b.i.d., Salonpas, Zyrtec, Bentyl 20 mg b.i.d., omeprazole 20 mg b.i.d., Desyrel 50 mg at bedtime, Cymbalta 60 mg daily, verapamil 180 mg b.i.d., acyclovir 400 mg b.i.d., tizanidine 4 mg b.i.d., Xanax 0.5 mg daily and Pravachol 40 mg daily. PQRS: 1. She has a history of osteoarthritis in her right knee and spine. Denies any rheumatoid arthritis. 2. Height is 5 feet 5 inches, weight is 166, BMI is 27. 3. Vital signs 130/80, pulse is 77, respirations 16, oxygen sat is 97. 4. Pain score is 2 currently, but rates it as high as 8/10. [address] [address] PAIN MANAGEMENT CONSULTATION Name: RACIEL THOMSON Room #: REG [facility].#: [id number] Admission: 04/30/19 Attend Phys: Felicia Montana Discharge: Date of : 57 Report #: [id number] 5. Denies dizziness. Does not need help walking or standing. Has not fallen in the last 3 months. 6. The patient is not on any blood thinners or does not take medicine for hypertension. 7. Opioid therapy is greater than 6 weeks; therefore, an opioid signed contract is on the chart. Risk assessment tool is low. Functional assessment is 29/70. 8. Recreational drug use in the past. Uses marijuana occasionally. Does currently smoke about a pack of cigarettes a day and occasionally uses alcohol. According to the prescription monitoring system, the patient is filling appropriately for her medications. She is due for these medications today. She does take an occasional alprazolam, and we did caution her about the risk of this medication with her opioid medications. She has been using this since her has to help her relax at times. We will check a random drug screen on her in June. PHYSICAL EXAMINATION: GENERAL: This is an alert and orientated 63-year-old female who appears her stated age, placing her pain score from 2 to 8 today. HEENT: Normocephalic, atraumatic. Extraocular eye muscles are intact. MUSCULOSKELETAL: She has right flank pain that radiates into her right hip, starting at the L1-L2 dermatomal distribution. There is tenderness in this location. IMPRESSION: 1. Right flank pain, possible lumbar radiculopathy. 2. Myofascial pain. 3. Recent diagnosis of multiple sclerosis. 4. Management of high-risk medications under terms of written opioid agreement. 5. Habitual tobacco use. We reviewed the fact that opiate medications are being used to provide analgesia adequate to support activities of daily living, not attempting to achieve a specific pain score on the 0-10 Visual Analog Scale. The current opiate medications are providing sufficient analgesia to allow the patient to participate in activities of daily living. The patient is not exhibiting any aberrant behavior suggestive of drug diversion. The patient is not having any adverse reactions to medications. The patient is not suffering from daytime somnolence or mental acuity changes. The patient is managing opiate-induced constipation with appropriate [id number]-[id number] agents and dietary considerations. The patient was counseled on concern for caution with operating a motor vehicle while using opiate medications. A physical exam was performed and the patient's functional status was evaluated. All patients with back pain were advised against the bed rest greater than 4 days and were advised to return to normal activities. Pain score assessment was [facility] [address] [place] [address] PAIN MANAGEMENT CONSULTATION Name: RACIEL THOMSON Room #: REG [facility].#: [id number] Admission: 04/30/19 Attend Phys: Felicia Montana Discharge: Date of : 57 Report #: [id number] noted and the treatment plan was reviewed with the patient. All current medications, both prescribed and OTC were reviewed and reconciled on the electronic medical record. Tobacco screening was accomplished and smoking cessation was advised when indicated. BMI was noted and diet/exercise modification was recommended for all patients following outside normal parameters. I reviewed with the patient today their responsibilities to safeguard prescription medications, reviewed their responsibility to utilize medications only as prescribed by the physician. They are to seek and receive pain medications only from 1 physician group ( [facility]). They are to use 1 pharmacy and keep the clinic informed if they change pharmacies. Their responsibilities include making followup visits in a timely fashion and to avoid abrupt discontinuation of medication usage. Their responsibilities further include bringing their medications (bottles from the pharmacy with residual pills) to the visit for possible confirmation of pill counts and the patient understands it is their responsibility to submit to random drug screens to ensure both that the medications prescribed are present, and that no other controlled substances are present. All prescriptions provided today were generated electronically. PLAN: 1. We discussed treatment options with the patient today. I encouraged the patient to try to decrease her smoking. Her pain will be better controlled with a decrease in smoking. The patient verbaizes understanding. She is going to try and decrease after the holidays. This is a hard time since the recent passing of her spouse. 2. We did discuss marijuana use. The patient is going to try to decide if she wants to have medical marijuana and seek information about this option. She feels that there are benefits to both and she understands that we are not allowed to write her narcotics if she continues on her marijuana. 3. Scripts given today for the patient for her hydrocodone 5/325, #60, for today and 4-week release. This places the patient at 10 morphine mEq, according to the CDC guidelines on a very low dose. 4. The patient denies any problems with constipation or daytime sleepiness from her medications. The patient is seen today in collaboration with Dr. Aniceto Hinds. <ELECTRONICALLY SIGNED> By: Felicia Montana 05/01/19 0937 [id number] Felicia Montana /parul
== END ==
LOC: PAIN 06:52
DX: R10.9 Unspecified abdominal pain (principal); M79.18 Myalgia, other site; Z79.891 Long term (current) use of opiate analgesic

== ENCOUNTER → 2019-06-07 | Outpatient (CLI) | payer OTHER ==
[~2019-06-07] VITALS: Ht 165.1 cm; Wt 75.1 kg
--- NOTE | ~2019-06-07 | HPC ---
[facility] [place] [place] [address] PAIN MANAGEMENT CONSULTATION Name: RACIEL THOMSON Room #: REG ADIA Coral.#: [id number] Admission: 06/07/19 Attend Phys: Aniceto Hinds MD Discharge: Date of : 57 Report #: [id number] THIS REPORT FOR: //name// CC: DEVIN Hinds DATE OF SERVICE: 06/07/2019 The patient returns to Pain Clinic today with symptoms of cervical radiculopathy. I reviewed her previous treatment. I treated her with trigger points! At that time, pain was mostly around the scapula and she responded very nicely with significant improvement. Last time, I performed trigger point injections was in November. Pain has returned now and she scores it as a 6/10. Pain today, however, has much more of a C6 radicular pattern to it. It begins in the neck, radiates through the scapula, which is typical of C6, but it also then radiates down into the arm and she has some sensations of pain and numbness into the thumb and forefinger. We discussed possibly performing a cervical epidural injection, but given her excellent response on more than one occasion to trigger point injections, I will perform those again today for her. Her after a brief illness. He was found to have acute myelogenous leukemia and of anaphylaxis during blood transfusion. As a matter of fact today, she described his and is grieving in her own way. She describes gratitude that he did not have to suffer and he relatively quickly. All of her medications are currently up-to-date and she needs no refills. PQRS REVIEW: 1. Positive for osteoarthritis of right knee and spondylosis of the cervical spine including the area around C6-C7 with facet arthropathy. 2. Vital signs: Blood pressure 134/72, heart rate 80, respirations 20, O2 sat 97. Her BMI is 27.6. 3. Pain intensity /10. 4. She is not a fall risk, is on no blood thinners and is not treated for hypertension. 5. She is on an opioid agreement through our clinic signed in 04/2018. She has completed an opioid risk tool, scoring 0; a low risk. 6. Functional assessment score is 35. 7. 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 8. She denies use of frequent alcohol, but drinks on occasion. IMPRESSION: Right C6 radiculopathy with myofascial components. [address] [address] PAIN MANAGEMENT CONSULTATION Name: RACIEL THOMSON Room #: REG [facility] Asif.Jim.#: [id number] Admission: 06/07/19 Attend Phys: Aniceto Hinds MD Discharge: Date of : 57 Report #: [id number] RECOMMENDATION: Trigger point injections under fluoroscopic guidance. We also had a lengthy discussion today about marijuana. It has now become legal in the state of [place] as a medicinal drug. She does not use it in that regard. She has, however, encountered it recreationally. We discussed the interesting dichotomy for these medications. I will be speaking for the second time on this philosophical question of what is a drug and what is a medicine. The same substance can be used illicitly and creating harm while also being used cautiously and carefully as a medicine. I truly believe that we are in a transition to consensus throughout the [place]. It is important for patients and physicians to speak openly and honestly about marijuana and its interactions. It does not appear to be dangerous in that the likelihood of by overdose is essentially unheard of, but it can encumber the patient and may contribute to other potential problems including motor vehicle accidents. Vaping has been shown to be extremely dangerous and may be dangerous in regards to its propellant. I do not intend to prescribe marijuana for her and will continue to prescribe low-dose opioids for her under terms of written agreement with precautions. PROCEDURE: Trigger point injections. She was taken to fluoroscopic suite to identify the subscapular region during the injection. The skin was prepped widely with ChloraPrep. I began in the neck and injected the splenius capitis, cervicalis, trapezius, and then injected the infraspinatus and supraspinatus. Final injection was performed along the rhomboids and in the subscapular region. I used a moderate amount of local anesthetic 16 mL of 0.25% bupivacaine mixed with 1 mg per mL of triamcinolone, a total of 16 mg injected. She tolerated the procedure well. There were no complications. She was observed in recovery room for a short time and then discharged. Follow up as needed. We will continue to see her routinely as required by our opioid agreement for any oral opioid medications. By: [id number] Aniceto Hinds MD /nt
[2019-06-07 09:00] VITALS: BP 134/72
--- NOTE | 2019-06-07 09:19 | NUR ---
Pain Clinic Assessment: 1. History of Osteoarthritis: RT KNEE SPINE History of Rheumatoid Arthritis: DENIES 2. Height: 5 ft. 5 in. 165.1 cm. Weight: 165.6 lb. oz. 75.116 kg. Patient's BMI: 27.6 3. Vital Signs: BP: 134/72 Pulse: 80 Resp: 20 Temp: 02 Sat: 97 ECG Mon: 4. Pain Intensity: 6 5. Fall Risk: Dizziness: N Needs help standing or walking: N Fallen in the last 3 months: N Fall risk comments: 6. Patient on Blood Thinner: None 7. History of Hypertension: N 8. Opioid Therapy greater than 6 weeks: Y Opiate Contract Signed: 05/02/18 9. Risk Assessment Tool Provided: 0-3 LOW RISK 10. Functional Assessment Tool: 11. Recreational Drug Use: Current within past 3 mos Drug Type: QUIT FOR 2019 Tobacco Use: Current Every Day Smoker Tobacco Type: Cigarettes Amount or Packs/day: 1 PPD How Many Years: Alcohol Use: Yes Frequency: Special Occasions Quant:
== END | disposition home or self-care (01) ==
LOC: PAIN 06:44
DX: M79.18 Myalgia, other site (principal); M47.22 Other spondylosis with radiculopathy, cervical region; M17.11 Unilateral primary osteoarthritis, right knee; F17.210 Nicotine dependence, cigarettes, uncomplicated; Z98.890 Other specified postprocedural states; Z79.899 Other long term (current) drug therapy; Z88.8 Allergy status to other drugs, medicaments and biological substances; Z79.891 Long term (current) use of opiate analgesic

== ENCOUNTER 2019-06-18 12:57 | Emergency (ER) | payer OTHER ==
[~2019-06-18] VITALS: Ht 165.1 cm; Wt 74.8 kg
[2019-06-18 16:17] LABS: BASOPHILS 0.7 % (0.0-2.0); EOSINOPHILS 1.5 % (0.0-3.0); HEMATOCRIT 44.3 % (37.0-47.0); HEMOGLOBIN 14.5 gm/dL (12.0-15.0); LYMPHOCYTES 31.2 % (24.0-44.0); MCH 30.8 pg (26.0-34.0); MCHC 32.7 g/dL (28.0-37.0); MONOCYTES 4.8 % (1.0-8.0); PLATELET COUNT 247 thou/uL (150-400); POLYS 61.8 % (36.0-66.0); RBC 4.71 mil/uL (4.20-5.00); RDW 13.1 % (10.5-14.5); WBC 11.4 thou/uL (4.0-11.0)
[2019-06-18 16:26] LABS: ANION GAP 10 mmol/L (7-16); BUN 15 mg/dL (7-18); CALCIUM 9.1 mg/dL (8.5-10.1); CHLORIDE 104 mmol/L (98-107); CO2 28 mmol/L (21-32); CREATININE 0.8 mg/dL (0.6-1.0); GLUCOSE 92 mg/dL (74-106); POTASSIUM 3.9 mmol/L (3.5-5.1); SODIUM 142 mmol/L (136-145)
[2019-06-18 16:43] LABS: ALBUMIN 3.9 g/dL (3.4-5.0); DIRECT BILIRUBIN < 0.1 mg/dL (<0.1-0.2); SGOT 10 U/L (15-37); SGPT 23 U/L (30-65); TOTAL BILIRUBIN 0.4 mg/dL (<0.1-1.0); TOTAL PROTEIN 7.5 g/dL (6.4-8.2)
[2019-06-18 17:10] LABS: URINE BILIRUBIN NEGATIVE (Negative); URINE BLOOD NEGATIVE (Negative); URINE CLARITY CLEAR; URINE COLOR YELLOW; URINE GLUCOSE-RANDOM* NEGATIVE (Negative); URINE KETONES NEGATIVE (Negative); URINE LEUKOCYTES-REFLEX NEGATIVE (Negative); URINE NITRITE-REFLEX NEGATIVE (Negative); URINE PROTEIN (DIPSTICK) NEGATIVE (Negative); URINE UROBILINOGEN 0.2 E.U./dl (0.2-1.0)
[2019-06-18 18:27] VITALS: BP 118/50
== END 2019-06-18 18:27 | disposition home or self-care (01) ==
LOC: ER 12:57
PROVIDERS: Emergency Medicine
DX: R10.84 Generalized abdominal pain (principal); F12.90 Cannabis use, unspecified, uncomplicated; Z87.891 Personal history of nicotine dependence; Z88.6 Allergy status to analgesic agent; Z88.1 Allergy status to other antibiotic agents; Z90.49 Acquired absence of other specified parts of digestive tract

== ENCOUNTER → 2019-08-06 | Outpatient (CLI) | payer OTHER ==
[~2019-08-06] VITALS: Ht 162.6 cm; Wt 78.0 kg
[2019-08-06 09:26] VITALS: BP 140/89
--- NOTE | 2019-08-06 09:27 | NUR ---
Pain Clinic Assessment: 1. History of Osteoarthritis: RT KNEE SPINE History of Rheumatoid Arthritis: DENIES 2. Height: 5 ft. 4 in. 162.6 cm. Weight: 172.0 lb. oz. 78.019 kg. Patient's BMI: 29.5 3. Vital Signs: BP: 140/89 Pulse: 94 Resp: 16 Temp: 02 Sat: 95 ECG Mon: 4. Pain Intensity: 3 5. Fall Risk: Dizziness: N Needs help standing or walking: N Fallen in the last 3 months: N Fall risk comments: 6. Patient on Blood Thinner: None 7. History of Hypertension: N 8. Opioid Therapy greater than 6 weeks: Y Opiate Contract Signed: 05/02/18 9. Risk Assessment Tool Provided: 0 LOW RISK 10. Functional Assessment Tool: 11. Recreational Drug Use: Current within past 3 mos Drug Type: MARIJUANA Tobacco Use: Current Every Day Smoker Tobacco Type: Cigarettes Amount or Packs/day: 1 PACK How Many Years: 3 Alcohol Use: Unknown Frequency: Special Occasions Quant:
--- NOTE | 2019-08-07 08:17 | HPC ---
[facility] [address] [place] [address] PAIN MANAGEMENT CONSULTATION Name: RACIEL THOMSON Room #: REG [facility]eto.#: [id number] Admission: 08/06/19 Attend Phys: Felicia Montana Discharge: Date of : 57 Report #: [id number] THIS REPORT FOR: cc: Ebonie Malhotra MD,Ebonie Montana,Felicia IRENE ~ CC: Felicia Malhotra DATE OF SERVICE: 08/06/2019 CHIEF COMPLAINT: Cervical radiculopathy and low back pain. HISTORY OF PRESENT ILLNESS: This is a 63-year-old female who returns to the pain clinic today for refill of her medications. She reports Dr. Aniceto Hinds performed some trigger points in her cervical areas and scapula. The patient reports that they were not beneficial. She did not feel that she had much pain relief from those injections. The patient still continues to have pain in her right shoulder greater than left that radiates into her right arm from her neck to her scapular region. She also today is complaining of bilateral groin pain, greater on the left than the right. She has been to several Emergency Room since we last seen her for this ongoing flank pain that does radiate into her groin. She has seen her chief cook who has ruled out any gynecological issues and she did not have any kidney stones as well. The patient now thinks that it may be coming from her lumbar spine or possibly lipomas that she does have present in her lower back. Today, she rates her pain as 3/10. It is an aching, sharp pain with no radicular symptoms into her legs presently. She feels that her medications have been helpful in controlling her pain. She does take her hydrocodone very sparingly. She occasionally uses a marijuana cookie. She finds the edibles better control her pain than inhaling her marijuana. She does not have a green card at this time she is gathering her records to seek this option further. Dr. Aniceto Hinds has addressed this issue with her in the past as well. ALLERGIES: CODEINE, KEFLEX, MEROPENEM. CURRENT LIST OF MEDICATIONS: Hydrocodone 5/325 p.r.n., Salonpas, Bentyl, omeprazole, Desyrel, Cymbalta, verapamil, Zovirax, Zanaflex, Xanax, and pravastatin. PQRS: 1. She is positive for osteoarthritis in her right knee and spondylosis of her cervical spine. 2. Denies rheumatoid arthritis. 3. Height is 5 feet 4 inches, weight is 172, BMI is 29. 4. Vital signs 140/89, pulse is 94, respirations 16, oxygen [place] 95[place] [address] PAIN MANAGEMENT CONSULTATION Name: RACIEL THOMSON Room #: REG [facility] David#: [id number] Admission: 08/06/19 Attend Phys: Felicia Montana Discharge: Date of : 57 Report #: [id number] 5. Pain score is 3/10. 6. Denies dizziness. 7. Does not need help walking or standing, has not fallen in the last 3 months. 8. The patient is on no blood pressure medicines or blood thinners. 9. Opiate therapy is greater than 6 weeks; therefore, an opioid signed contract is on the chart. Risk assessment tool is low. Functional assessment is 35/70. 10. Recreational drug use, using marijuana. Continues to smoke cigarettes a pack a day, does not drink alcohol. According to the prescription monitoring system, the patient is filling appropriately from Dr. Aniceto Hinds. There are refills from alprazolam. The patient states she takes those very sparingly and does not take them at the same time of her other opioid medications. PHYSICAL EXAMINATION: GENERAL: This is a well-developed, well-hydrated female, placing her current pain score at 3/10 today. She is a good historian. HEENT: Normocephalic, atraumatic. Extraocular eye muscles are intact. MUSCULOSKELETAL: She has pain in her bilateral flank areas that would radiate around to her groin involving the genitalia following the L1-L2 dermatomal distribution. She does have tenderness over her sacroiliac joints as well that radiate into her buttock, but not into her legs. The right side is greater than the left. Pain is located as well in her neck, radiates into her scapula following the C6 distribution down her right arm with occasional numbness and tingling. Lower extremity strength judged to be 5/5 in all major muscle groups. IMPRESSION: 1. C6 radiculopathy with myofascial components. 2. Lumbar radiculopathy following the L1 dermatomal distribution. 3. Sacroiliac joint pain. 4. Multiple sclerosis. 5. Habituation of tobacco use. 6. Management of high-risk medications under terms of written opioid agreement. We reviewed the fact that opiate medications are being used to provide analgesia adequate to support activities of daily living, not attempting to achieve a specific pain score on the 0-10 Visual Analog Scale. The current opiate medications are providing sufficient analgesia to allow the patient to participate in activities of daily living. The patient is not exhibiting any aberrant behavior suggestive of drug diversion. The patient is not having any adverse reactions to medications. The patient is not suffering from daytime somnolence or mental acuity changes. The patient is managing opiate-induced constipation with appropriate jenj-lnc-ptehpmv agents and dietary considerations. The patient was counseled on concern for caution with operating a motor vehicle while using opiate medications. [facility] [address] [place] [address] PAIN MANAGEMENT CONSULTATION Name: RACIEL THOMSON Room #: REG [facility] M.R.#: [id number] Admission: 08/06/19 Attend Phys: Felicia Montana Discharge: Date of : 57 Report #: [id number] PLAN: 1. We discussed treatment options with the patient today. The patient continues to use marijuana, not on a daily basis. I encouraged the patient to get her green card for legalize marijuana in the state of [place]. The patient is obtaining her records to try to start this process. I explained to her that we would wean her off her hydrocodone, which she uses very sparingly for her ongoing pain. We would gladly see her for injections as needed if she does continue on the medical marijuana route. The patient tells me she does not inhale or smoke marijuana. She is using the edibles and finds those more beneficial in controlling her pain. 2. The patient continues to have this ongoing flank pain area. She discussed this with me in April. She has been to the Emergency Room several times since then. We will obtain an MRI of the lumbar spine to see possible causes. We will also make her an appointment with Dr. Aniceto Hinds for a possible L1-L2 lumbar epidural to see if this will quiet her symptoms. The patient is agreeable with this plan of care. 3. The patient has made an appointment for next week, but if she is unable to get her MRI done before then, we may move this appointment. 4. The patient reports she has had two doses of Medrol Dosepak in the past month, has only found them slightly beneficial in decreasing some of her pain. 5. We will electronically have Dr. Aniceto Hinds send her hydrocodone 5/325, #60 for today and 4 weeks supply to her local pharmacy. 6. The patient is seen in collaboration with Dr. Aniceto Hinds. The patient will return in 1 week's time. <ELECTRONICALLY SIGNED> By: Felicia Montana 08/07/19 0817 [id number] [id number] Felicia Montana /nt
== END ==
LOC: PAIN 06:44
DX: M54.16 Radiculopathy, lumbar region (principal); M54.12 Radiculopathy, cervical region; G35 Multiple sclerosis; M53.3 Sacrococcygeal disorders, not elsewhere classified; F17.200 Nicotine dependence, unspecified, uncomplicated; Z88.5 Allergy status to narcotic agent; Z88.8 Allergy status to other drugs, medicaments and biological substances; Z79.891 Long term (current) use of opiate analgesic; Z79.1 Long term (current) use of non-steroidal anti-inflammatories (NSAID)

== ENCOUNTER → 2019-08-09 | Outpatient (CLI) | payer OTHER | LOC: MRI 12:57 | DX: M47.26 Other spondylosis with radiculopathy, lumbar region (principal); M48.061 Spinal stenosis, lumbar region without neurogenic claudication; M48.04 Spinal stenosis, thoracic region; M51.16 Intervertebral disc disorders with radiculopathy, lumbar region; M51.85 Other intervertebral disc disorders, thoracolumbar region; M71.38 Other bursal cyst, other site; M84.48XA Pathological fracture, other site, initial encounter for fracture ==

== ENCOUNTER → 2019-10-17 | Outpatient (CLI) | payer OTHER | LOC: SJCVC 16:23 | DX: I25.10 Atherosclerotic heart disease of native coronary artery without angina pectoris (principal); I10 Essential (primary) hypertension; E78.00 Pure hypercholesterolemia, unspecified; I77.4 Celiac artery compression syndrome; R09.89 Other specified symptoms and signs involving the circulatory and respiratory systems; F17.210 Nicotine dependence, cigarettes, uncomplicated; Z79.899 Other long term (current) drug therapy; Z82.49 Family history of ischemic heart disease and other diseases of the circulatory system ==

== ENCOUNTER → 2019-10-22 | Outpatient (CLI) | payer OTHER ==
[~2019-10-22] VITALS: Ht 160 cm; Wt 75.7 kg
[2019-10-22 12:41] VITALS: BP 129/70
--- NOTE | 2019-10-22 12:58 | NUR ---
Pain Clinic Assessment: 1. History of Osteoarthritis: RT KNEE SPINE History of Rheumatoid Arthritis: DENIES 2. Height: 5 ft. 3 in. 160.0 cm. Weight: 166.8 lb. oz. 75.660 kg. Patient's BMI: 29.6 3. Vital Signs: BP: 129/70 Pulse: 70 Resp: 16 Temp: 02 Sat: 97 ECG Mon: 4. Pain Intensity: 3 5. Fall Risk: Dizziness: N Needs help standing or walking: N Fallen in the last 3 months: N Fall risk comments: 6. Patient on Blood Thinner: None 7. History of Hypertension: N 8. Opioid Therapy greater than 6 weeks: Y Opiate Contract Signed: 05/02/18 9. Risk Assessment Tool Provided: 0 LOW RISK 10. Functional Assessment Tool: 11. Recreational Drug Use: Current within past 3 mos Drug Type: Tobacco Use: Current Every Day Smoker Tobacco Type: Amount or Packs/day: How Many Years: Alcohol Use: Unknown Frequency: Quant:
--- NOTE | 2019-10-22 13:12 | NUR ---
Pain Clinic Assessment: 1. History of Osteoarthritis: RT KNEE SPINE History of Rheumatoid Arthritis: DENIES 2. Height: 5 ft. 3 in. 160.0 cm. Weight: 166.8 lb. oz. 75.660 kg. Patient's BMI: 29.6 3. Vital Signs: BP: 129/70 Pulse: 70 Resp: 16 Temp: 02 Sat: 97 ECG Mon: 4. Pain Intensity: 5 5. Fall Risk: Dizziness: N Needs help standing or walking: N Fallen in the last 3 months: N Fall risk comments: 6. Patient on Blood Thinner: None 7. History of Hypertension: N 8. Opioid Therapy greater than 6 weeks: Y Opiate Contract Signed: 05/02/18 9. Risk Assessment Tool Provided: 0 LOW RISK 10. Functional Assessment Tool: 11. Recreational Drug Use: Current within past 3 mos Drug Type: MJ Tobacco Use: Current Every Day Smoker Tobacco Type: Cigarettes Amount or Packs/day: How Many Years: Alcohol Use: Unknown Frequency: Quant:
--- NOTE | 2019-10-23 10:20 | HPC ---
[facility] [place] [address] PAIN MANAGEMENT CONSULTATION Name: RACIEL THOMSON Room #: REG [facility] M.R.#: [id number] Admission: 10/22/19 Attend Phys: Felicia Montana Discharge: Date of : 57 Report #: [id number] THIS REPORT FOR: cc: Ebonie Malhotra MD, Lisa A. MD Hocker,Felicia IRENE ~ CC: Aniceto Hinds MD DATE OF SERVICE: 10/22/2019 CHIEF COMPLAINT: Cervical radiculopathy and lumbar radiculopathy. HISTORY OF PRESENT ILLNESS: This is a 63-year-old female who returns to the pain clinic today for a refill of her medications that she uses to take help treat her ongoing low back pain. She has been using this very sparingly as well as using some marijuana cookies that she feels do help her pain be very well controlled. Today, she is reporting her pain score of 5/10. Most of her pain is located in her lower back that radiates around the right lateral aspect flank area radiating into her groin. The patient is also reporting cervical pain issues with numbness and tingly down her left arm. Again, an aching, numbness, tingling and sharp, worse with activity. Her pain is better controlled with her medication and repositioning herself. ALLERGIES: CODEINE, KEFLEX, MEROPENEM. CURRENT MEDICATIONS: Hydrocodone p.r.n. Salonpas, Bentyl, omeprazole, trazodone, Cymbalta, verapamil, acyclovir, Zanaflex, Xanax, and pravastatin. PQRS: 1. She has osteoarthritis in her right knee and spondylosis in her cervical spine. She denies any rheumatoid arthritis. 2. Height is 5 feet 4, weight is 166, BMI is 29. 3. Vital signs 129/77, pulse is 70, respirations 16, oxygen sat is 97%. 4. Pain score is 5/10. 5. Denies dizziness, does not need help walking or standing, has not fallen in the last 3 months. 6. The patient is not on any blood thinners or medicine for hypertension. 7. Opioid therapy is greater than 6 weeks; therefore, an opioid signed contract is on the chart. Risk assessment tool is low. Functional assessment is 35/70. 8. Recreational drug use, currently marijuana. She is a current everyday tobacco smoker of cigarettes and does not drink alcohol. According to the prescription monitoring system, the patient filled our last prescription on August 05 and has not filled her 4-week release. Her morphine mEq is less than 10 MMEs per day due to the fact that [place] [address] PAIN MANAGEMENT CONSULTATION Name: RACIEL THOMSON Room #: REG [facility]#: [id number] Admission: 10/22/19 Attend Phys: Felicia Montana Discharge: Date of : 57 Report #: [id number] sparingly, has been 2-1/2 months with 60 tablets and she does have medications remaining. PHYSICAL EXAMINATION: GENERAL: This is a well-developed, well-hydrated white female who appears her stated age, placing her current pain score at 5/10 today. HEENT: Normocephalic, atraumatic. Extraocular eye muscles are intact. She is wearing a mask. MUSCULOSKELETAL: Pain from her lumbar spine that radiates flank area into her groin following the L1 dermatomal distribution into her right groin. pain in the lateral aspect and posterior aspect of her right thigh as well. Cervical provocation testing does reproduce her cervical radicular symptoms down her left arm with numbness and tingling in all fingers of her left hand following this C6 dermatomal distribution and into the C7. Patient's upper and lower extremity strength judged to be 5/5 in all major muscle groups. IMPRESSION: 1. Cervical radiculopathy. 2. Lumbar radiculopathy. 3. Multiple sclerosis. 4. Habituation of tobacco use. 5. Management of high risk medications under terms of written opioid agreement. We reviewed the fact that opiate medications are being used to provide analgesia adequate to support activities of daily living, not attempting to achieve a specific pain score on the 0-10 Visual Analog Scale. The current opiate medications are providing sufficient analgesia to allow the patient to participate in activities of daily living. The patient is not exhibiting any aberrant behavior suggestive of drug diversion. The patient is not having any adverse reactions to medications. The patient is not suffering from daytime somnolence or mental acuity changes. The patient is managing opiate-induced constipation with appropriate qquq-tuk-jongpsu agents and dietary considerations. The patient was counseled on concern for caution with operating a motor vehicle while using opiate medications. A physical exam was performed and the patient's functional status was evaluated. All patients with back pain were advised against the bed rest greater than 4 days and were advised to return to normal activities. Pain score assessment was noted and the treatment plan was reviewed with the patient. All current medications, both prescribed and OTC were reviewed and reconciled on the electronic medical record. Tobacco screening was accomplished and smoking cessation was advised when indicated. BMI was noted and diet/exercise modification was recommended for all patients following outside normal parameters. [address] [address] PAIN MANAGEMENT CONSULTATION Name: RACIEL THOMSON Room #: REG [facility]#: [id number] Admission: 10/22/19 Attend Phys: Felicia Montana Discharge: Date of : 57 Report #: [id number] I reviewed with the patient today their responsibilities to safeguard prescription medications, reviewed their responsibility to utilize medications only as prescribed by the physician. They are to seek and receive pain medications only from 1 physician group ( [facility]). They are to use 1 pharmacy and keep the clinic informed if they change pharmacies. Their responsibilities include making followup visits in a timely fashion and to avoid abrupt discontinuation of medication usage. Their responsibilities further include bringing their medications (bottles from the pharmacy with residual pills) to the visit for possible confirmation of pill counts and the patient understands it is their responsibility to submit to random drug screens to ensure both that the medications prescribed are present, and that no other controlled substances are present. All prescriptions provided today were generated electronically. PLAN: 1. We discussed treatment options again with this patient today. The patient continues to use medical marijuana, though she has not obtained a green card. I highly encouraged her to start this process. We have given her the [employer] card. The patient is taking her hydrocodone very sparingly. We will continue to wean her off this medication. She still has 60 tablets at her pharmacy, so we will not provide her with any further medications. I believe that since she is finding the medical marijuana route beneficial I would encourage her to continue these edibles through legal channels of obtaining her green card through Dr. Farias. The patient verbalizes understanding. She will seek out her medical records and call for an appointment. 2. The patient continues to have ongoing lumbar radiculopathy symptoms. According to her x-ray, it does show some multilevel lumbar spondylosis at several levels as well as a chronic pars interarticularis fractures at L5 without significant spondylolisthesis. There is a left-sided intraspinal synovial cyst formation as well, though this is not an area that is causing her pain. I believe that she may benefit from a possible lumbar epidural steroid injection, though she continues to have cervical radicular symptoms as well. Her pain varies of increasing intensity in her neck versus her lower back. We will make an appointment, Dr. Aniceto Hinds. He may examine her and determine her most problematic area at that time and perform an epidural steroid injection. 3. We will obtain a cervical MRI without contrast prior to this appointment. She has had one in 2018, which did show a posterior disk osteophyte and narrowing at the C6-C7 area at that time. This is the area that continues to be problematic for this patient. 4. Appointments made for her MRI as well as her epidural for [place] [address] PAIN MANAGEMENT CONSULTATION Name: RACIEL THOMSON Room #: REG [facility]#: [id number] Admission: 10/22/19 Attend Phys: Felicia Montana Discharge: Date of : 57 Report #: [id number] in early November. The patient will return at that time. The patient is seen today in collaboration with Dr. Aniceto Hinds. <ELECTRONICALLY SIGNED> By: Felicia Montana 10/23/19 1020 1414 [id number] Felicia Montana /nt
== END ==
LOC: PAIN 08-16 06:55
DX: M54.12 Radiculopathy, cervical region (principal); M54.16 Radiculopathy, lumbar region; M41.9 Scoliosis, unspecified; Z72.0 Tobacco use; F11.20 Opioid dependence, uncomplicated; Z88.5 Allergy status to narcotic agent; Z88.3 Allergy status to other anti-infective agents; Z88.8 Allergy status to other drugs, medicaments and biological substances; Z79.899 Other long term (current) drug therapy

== ENCOUNTER → 2019-10-24 | Outpatient (CLI) | payer OTHER | LOC: MRI 10:02 | DX: M50.122 Cervical disc disorder at C5-C6 level with radiculopathy (principal); M48.02 Spinal stenosis, cervical region; M50.20 Other cervical disc displacement, unspecified cervical region; M25.78 Osteophyte, vertebrae ==

== ENCOUNTER → 2019-11-08 | Outpatient (CLI) | payer OTHER ==
[~2019-11-08] VITALS: Ht 160 cm; Wt 74.8 kg
[~2019-11-08] MED LIST changes: +CRESTOR40 MG PO; +VERAPAMIL ER180 M1 PO; -VERAPAMIL ER180 MG PO
[2019-11-08 08:51] VITALS: BP 118/77
--- NOTE | 2019-11-08 09:06 | NUR ---
Pain Clinic Assessment: 1. History of Osteoarthritis: RT KNEE SPINE History of Rheumatoid Arthritis: DENIES 2. Height: 5 ft. 3 in. 160.0 cm. Weight: 165.0 lb. oz. 74.844 kg. Patient's BMI: 29.2 3. Vital Signs: BP: 118/77 Pulse: 83 Resp: 16 Temp: 02 Sat: 98 ECG Mon: 4. Pain Intensity: 5 5. Fall Risk: Dizziness: N Needs help standing or walking: N Fallen in the last 3 months: N Fall risk comments: 6. Patient on Blood Thinner: None 7. History of Hypertension: N 8. Opioid Therapy greater than 6 weeks: Y Opiate Contract Signed: 05/02/18 9. Risk Assessment Tool Provided: 0 LOW RISK 10. Functional Assessment Tool: 11. Recreational Drug Use: Current within past 3 mos Drug Type: MARIJUANA Tobacco Use: Current Every Day Smoker Tobacco Type: Cigarettes Amount or Packs/day: 1 How Many Years: Alcohol Use: Yes Frequency: Special Occasions Quant: BEER IF IT'S REALLY HOT OUT
--- NOTE | 2019-11-22 12:16 | HPC ---
[facility] [place] [address] PAIN MANAGEMENT CONSULTATION Name: RACIEL THOMSON Room #: REG [facility].#: [id number] Admission: 11/08/19 Attend Phys: Aniceto Hinds MD Discharge: Date of : 57 Report #: [id number] THIS REPORT FOR: cc: Zoraida Perez MD, Hillary N. MD Morgan, Richard L. MD ~ CC: Zoraida Hinds DATE OF SERVICE: 11/08/2019 Followup visit for low back pain. 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 She had an MRI scan and we reviewed it together today. She complains of pain across the lumbosacral segment. It radiates along the iliac crest and sometimes into the groin. It does not follow a classic radicular pattern. It is associated with bilateral significant sacroiliac joint tenderness. Pain is worse with standing and walking. She is on an opioid agreement. She has followed her regimen carefully and uses very minimal amounts of pain medicine. I provided with hydrocodone, which she takes not daily, but on occasion, #60 tablets provided on 08/06/2019 was utilized over the months of August, September and she refilled her second prescription, which was provided about 2-3 weeks ago. Her MME will be calculated at less than 5! She is grateful for it, however, and it provides relief when she needs it without significant side effects. I am willing to provide it for her once again and I have checked her prescription drug monitoring program, affirmation there are no unexpected entries. We discussed sacroiliac injections today as a way of providing relief of that pain that was troublesome for her today with standing. She scores that pain as a 5/10. PQRS: Positive for history of osteoarthritis, right knee and spine. Her BMI is 29.5. Blood pressure is 118/77, heart rate 83, respirations 16, O2 sat 98. She is on no blood thinners and is not treated for hypertension. She is on an opioid agreement with our clinic signed in April and her ORT score is 0. She continues to smoke cigarettes and was counseled. She drinks alcohol only on occasion. She has had marijuana, but does not use it with a regular basis nor does she use it medicinally. She was counseled. PLAN: 1. Bilateral sacroiliac injections. 2. Renewed his second month of hydrocodone 5/325, #[address] [address] PAIN MANAGEMENT CONSULTATION Name: RACIEL THOMSON Room #: REG [facility] Hernandez#: [id number] Admission: 11/08/19 Attend Phys: Aniceto Hinds MD Discharge: Date of : 57 Report #: [id number] PROCEDURE: After informed consent, she was taken to fluoroscopic suite. She was placed prone, skin prepped with ChloraPrep. Skin anesthetized first on the left. Using careful fluoroscopic guidance, we identified the posterior inferior aspect of the sacroiliac joint and a 22-gauge needle was gently advanced through the capsule. An arthrogram was achieved with 0.25 mL of Omnipaque and I followed it with 2 mL of 0.25% bupivacaine mixed with 40 mg of triamcinolone. Needle was removed. C-arm was moved to the right and a mirror image injection was performed using the same technique. She tolerated the procedures well. There were no complications. She was observed in the recovery room for 30 minutes and discharged. Followup visit planned as needed for medication management or for repeat injections. I did tell her that this is difficult area for diagnosis. If she does not respond, I would consider an epidural injection to see if there is a radicular component to this pain. <ELECTRONICALLY SIGNED> By: Aniecto Hinds MD 11/22/19 1216 0950 1000 Aniceto Hinds MD /nt
== END | disposition home or self-care (01) ==
LOC: PAIN 06:52
PROVIDERS: ATTEND Anesthesiology Pain Medicine
DX: M53.3 Sacrococcygeal disorders, not elsewhere classified (principal); M54.5 Low back pain; M54.12 Radiculopathy, cervical region; G89.29 Other chronic pain; F17.210 Nicotine dependence, cigarettes, uncomplicated; Z98.890 Other specified postprocedural states; Z79.899 Other long term (current) drug therapy; Z79.891 Long term (current) use of opiate analgesic
CPT/HCPCS: G0260

== ENCOUNTER → 2020-01-25 | Outpatient (CLI) | payer OTHER | LOC: SJCVCIMAG 08:46 | PROVIDERS: ATTEND Internal Medicine Cardiovascular Disease | DX: I07.1 Rheumatic tricuspid insufficiency (principal); I10 Essential (primary) hypertension; I25.10 Atherosclerotic heart disease of native coronary artery without angina pectoris; K55.1 Chronic vascular disorders of intestine; E78.00 Pure hypercholesterolemia, unspecified; F17.200 Nicotine dependence, unspecified, uncomplicated; Z82.49 Family history of ischemic heart disease and other diseases of the circulatory system ==